=== PATIENT | female | born 1945 | race Caucasian/White ===

== ENCOUNTER 2024-06-07 11:34 | Emergency (ER) | payer OTHER ==
[~2024-06-07] VITALS: Ht 165.1 cm; Wt 68.2 kg
[2024-06-07] MEDS ORDERED: IBUPROFEN 600 MG TABLET PO ONE (13:15)
[2024-06-07] MEDS: PredniSONE 20 MG TABLET PO ONE (13:33)
[2024-06-07] MEDS: ACETAMINOPHEN 500 MG TABLET PO ONE (13:33)
[2024-06-07 14:08] VITALS: BP 151/92; PULSE 77; RESP 18; TEMP 98; O2SAT 99
[2024-06-07] MEDS ORDERED: CYCL-448 PO (14:08)
== END 2024-06-07 14:31 | disposition home or self-care (01) ==
LOC: EMS 11:44
DX: M25.511 Pain in right shoulder (principal); M62.838 Other muscle spasm; M19.90 Unspecified osteoarthritis, unspecified site; I10 Essential (primary) hypertension; Z88.6 Allergy status to analgesic agent; Z88.5 Allergy status to narcotic agent
CPT/HCPCS: 99283; 73030; J7512

== ENCOUNTER 2024-08-18 16:06 | Emergency (ER) | payer OTHER ==
[~2024-08-18] VITALS: Ht 160 cm; Wt 71.8 kg
[~2024-08-18 16:06] MED LIST: CYCL-448 PO
[2024-08-18] MEDS ORDERED: LISI-893 PO (16:12)
[2024-08-18] MEDS ORDERED: AMOX-457 PO (16:12)
[2024-08-18 16:24] VITALS: BP 179/85; PULSE 88; RESP 20; TEMP 98.7; O2SAT 98
[2024-08-18] MEDS ORDERED: HYDR-4062 PO (18:13)
== END 2024-08-18 17:36 | disposition home or self-care (01) ==
LOC: EMS 16:08
DX: K02.9 Dental caries, unspecified (principal); I10 Essential (primary) hypertension; M19.90 Unspecified osteoarthritis, unspecified site; Z88.5 Allergy status to narcotic agent; Z79.899 Other long term (current) drug therapy
CPT/HCPCS: 99283; Z7502

== ENCOUNTER 2025-02-04 16:41 | Emergency (ER) | payer OTHER ==
[~2025-02-04] VITALS: Ht 157.5 cm; Wt 68.2 kg
[~2025-02-04 16:41] MED LIST changes: +AMOX-457 PO; -CYCL-448 PO; +HYDR-4062 PO; +LISI-893 PO
[2025-02-04] MEDS ORDERED: EZET10TA57 PO (16:52)
[2025-02-04] MEDS ORDERED: ESOM20CA51 PO (16:52)
[2025-02-04] MEDS ORDERED: LISI10TA24 PO (16:52)
[2025-02-04 16:53] VITALS: BP 140/73; PULSE 87; RESP 18; TEMP 98.1; O2SAT 98
[2025-02-04] MEDS ORDERED: EVOL140P3 SQ (18:27)
[2025-02-04] MEDS ORDERED: BEMP180T PO (18:27)
== END 2025-02-04 19:36 | disposition home or self-care (01) ==
LOC: EMS 16:41
DX: M79.605 Pain in left leg (principal); M25.562 Pain in left knee; I10 Essential (primary) hypertension; M19.90 Unspecified osteoarthritis, unspecified site; Z88.5 Allergy status to narcotic agent; Z88.6 Allergy status to analgesic agent; Z79.899 Other long term (current) drug therapy
CPT/HCPCS: 93971; 99284; Z7502